=== PATIENT | male | born 1975 ===

== ENCOUNTER 2020-01-19 10:05 | Day surgery (SDC) | payer BC ==
[~2020-01-19] VITALS: Ht 180.3 cm; Wt 88.0 kg
--- NOTE | 2020-01-19 10:36 | NUR ---
01/19/20 1036 Juancho Morrell CALL LIGHT WITHIN REACH. PT STATES HE HAD BLACK COFFEE ABOUT 4OZ AROUND [address] COON AWARE, DR. JADE OK TO PROCEED WITH PROCEDURE
== END 2020-01-19 11:43 | disposition home or self-care (01) ==
LOC: ORSCSDS 10:05
PROVIDERS: Internal Medicine Gastroenterology
PROC: 06LY4CC Occlusion of Hemorrhoidal Plexus with Extraluminal Device, Percutaneous Endoscopic Approach (ICD-10-PCS; principal; 2020-01-19 11:15)
DX: K92.1 Melena (principal); K64.8 Other hemorrhoids; Z80.0 Family history of malignant neoplasm of digestive organs
CPT/HCPCS: J2704; J7120

== ENCOUNTER 2020-06-24 12:36 | Day surgery (SDC) | payer BC ==
[~2020-06-24] VITALS: Ht 175.3 cm; Wt 89.8 kg
== END 2020-06-24 14:45 | disposition home or self-care (01) ==
LOC: ORSCSDS 12:36
PROVIDERS: Internal Medicine Gastroenterology
PROC: 0DBK8ZX Excision of Ascending Colon, Via Natural or Artificial Opening Endoscopic, Diagnostic (ICD-10-PCS; principal; 2020-06-24 14:15)
DX: Z12.11 Encounter for screening for malignant neoplasm of colon (principal); D12.2 Benign neoplasm of ascending colon; K64.8 Other hemorrhoids; K64.4 Residual hemorrhoidal skin tags; Z80.0 Family history of malignant neoplasm of digestive organs
CPT/HCPCS: 88305; J2704; J7120

== ENCOUNTER 2025-02-20 17:37 | Observation (INO) | payer OTHER ==
[~2025-02-20] VITALS: Ht 180.3 cm; Wt 93.0 kg
[2025-02-20] MEDS ORDERED: Clindamycin 600mg in D5W 50 ML IV ONE (18:25)
[2025-02-20] MEDS ORDERED: CefTRIAXone Sodium 1,000 MG in NS 100 ML IV SCH (21:01)
[2025-02-20] MEDS ORDERED: MetroNIDAZOLE 500MG/NS 100 ml 100 ML IV SCH (22:00)
[2025-02-21] VITALS (16 sets, daily range): BP systolic 103–139; BP diastolic 52–82
[2025-02-21] MEDS ORDERED: MetroNIDAZOLE 500MG/NS 100 ml 100 ML IV SCH (01:15)
[2025-02-21 06:33] LABS: BASOPHILS ABSOLUTE AUTO 0.04 K/mm3 (0.00-0.23); BASOPHILS PERCENT AUTO 0 % (0-2); EOSINOPHILS ABSOLUTE AUTO 0.02 K/mm3 (0.00-0.68); EOSINOPHILS PERCENT AUTO 0 % (0-6); Hematocrit 37.6 % (37.0-53.0); Hemoglobin 12.2 g/dL (13.5-17.5); IMMATURE GRAN ABSOLUTE AUTO 0.03 K/mm3 (0.00-0.10); IMMATURE GRAN PERCENT AUTO 0 % (0-1); LYMPHOCYTES ABSOLUTE AUTO 1.15 K/mm3 (0.84-5.20); LYMPHOCYTES PERCENT AUTO 10 % (21-46); MONOCYTES ABSOLUTE AUTO 1.13 K/mm3 (0.16-1.47); MONOCYTES PERCENT AUTO 10 % (4-13); Mean Corpuscular HGB Conc 32.4 g/dL (31.5-36.5); Mean Corpuscular Volume 92 fL (80-100); NEUTROPHILS ABSOLUTE AUTO 8.94 K/mm3 (1.96-9.15); NEUTROPHILS PERCENT AUTO 79 % (41-73); NRBC ABSOLUTE 0.00 K/mm3 (0.00-0.02); NRBC Auto 0.0 /100 WBC (0.0-0.2); Platelet Count 366 K/mm3 (150-400); RDW Coefficient Variation 12.3 % (11.7-14.2); RDW Standard Deviation 41.5 fL (35.1-46.3)
[2025-02-21 06:53] LABS: Anion Gap 8.0 mmol/L (3-11); Blood Urea Nitrogen 10.0 mg/dL (8-24); CO2, Blood 26.0 mmol/L (21-32); Calcium, Blood 8.1 mg/dL (8.5-10.1); Chloride, Blood 103.0 mmol/L (98-108); Creatinine, Blood 1.01 mg/dL (0.60-1.20); Glucose, Blood 96.0 mg/dL (70-99); Potassium, Blood 4.0 mmol/L (3.5-5.5); Sodium, Blood 133.0 mmol/L (136-145)
[2025-02-21] MEDS ORDERED: Lactobacil 2-S.Thermo-Bifido 1 1 Cap PO SCH (09:00)
--- NOTE | 2025-02-21 12:35 | NUR ---
History, Chart, Medications and Allergies reviewed before start of procedure. Lungs clear T/O to Auscultation. Patient confirms NPO status and agrees with scheduled surgery. Pre-Op teaching done. Pt verbalizes understanding.
[2025-02-21] MEDS ORDERED: Bupivacaine 0.5% W/EPI 1:200000 SDV 30 ML Vial ONE (12:55)
[2025-02-21] MEDS ORDERED: FentaNYL Citrate 50 MCG/ML 2 ML Injection ONE ×2 (13:09→14:45)
[2025-02-21] MEDS ORDERED: Dexamethasone Sod Phos 10 MG/ML 1ML VIAL ONE (13:30)
[2025-02-21] MEDS ORDERED: Ondansetron HCl 2 MG / ML 2ML Vial ONE (13:45)
--- NOTE | 2025-02-21 13:46 | NUR ---
02/21/25 1346 Jaky Luna PATIENT IS ON SCHEDULED ANTIBIOTICS. NO ADDITIONAL PREOPERATIVE ANTIBIOTICS ORDERED.
[2025-02-21] MEDS ORDERED: Ketorolac Tromethamine 30mg Vial ONE (14:45)
--- NOTE | 2025-02-21 15:48 | NUR ---
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 PT TO UNIT AT 1525. A/O, VSS, SURGICAL SITE WNL.PT REPORTS MINIMAL PAIN. CALL LIGHT IN REACH. PT FAMILY AT BEDSIDE.
--- NOTE | 2025-02-21 18:10 | NUR ---
DISCHARGE EATING, DRINKING, VOIDING. PAIN WELL CONTROLLED. REQUESTING TO GO HOME. ALREADY HAS Rx FROM PHARMACY. DECLINES WC & AMBULATES OUT w/ .
== END 2025-02-21 18:10 | disposition home or self-care (01) ==
LOC: ER 17:37 → SURS 17:38 → ERHOLD 17:38 → ER 20:55 → SURS 02-21 15:18
PROVIDERS: Student in an Organized Health Care Education/Training Program; Surgery; ADMIT Student in an Organized Health Care Education/Training Program
PROC: 0D9Q0ZZ Drainage of Anus, Open Approach (ICD-10-PCS; principal; 2025-02-21 13:00)
DX: K61.0 Anal abscess (principal); K64.4 Residual hemorrhoidal skin tags; E87.1 Hypo-osmolality and hyponatremia; R50.9 Fever, unspecified; Z85.46 Personal history of malignant neoplasm of prostate; K62.89 Other specified diseases of anus and rectum; N15.1 Renal and perinephric abscess
CPT/HCPCS: 36415; 72193; 80048; 80053; 83605; 84153; 84154; 85025; 87040; 99284; A9270; J0696; J1100; J1885; J2405; J2704; J3010; J7120; Q9967

== ENCOUNTER → 2025-02-20 | Outpatient (CLI) | payer OTHER ==
[2025-02-20 15:10] LABS: BASOPHILS ABSOLUTE AUTO 0.03 K/mm3 (0.00-0.23); BASOPHILS PERCENT AUTO 0 % (0-2); EOSINOPHILS ABSOLUTE AUTO 0.01 K/mm3 (0.00-0.68); EOSINOPHILS PERCENT AUTO 0 % (0-6); Hematocrit 38.3 % (37.0-53.0); Hemoglobin 12.7 g/dL (13.5-17.5); IMMATURE GRAN ABSOLUTE AUTO 0.04 K/mm3 (0.00-0.10); IMMATURE GRAN PERCENT AUTO 0 % (0-1); LYMPHOCYTES ABSOLUTE AUTO 1.56 K/mm3 (0.84-5.20); LYMPHOCYTES PERCENT AUTO 13 % (21-46); MONOCYTES ABSOLUTE AUTO 0.84 K/mm3 (0.16-1.47); MONOCYTES PERCENT AUTO 7 % (4-13); Mean Corpuscular HGB Conc 33.2 g/dL (31.5-36.5); Mean Corpuscular Volume 90 fL (80-100); NEUTROPHILS ABSOLUTE AUTO 9.53 K/mm3 (1.96-9.15); NEUTROPHILS PERCENT AUTO 79 % (41-73); NRBC ABSOLUTE 0.00 K/mm3 (0.00-0.02); NRBC Auto 0.0 /100 WBC (0.0-0.2); Platelet Count 408 K/mm3 (150-400); RDW Coefficient Variation 12.4 % (11.7-14.2); RDW Standard Deviation 40.6 fL (35.1-46.3)
[2025-02-20 15:25] LABS: Alanine Aminotransfer (ALT/SGP 28.0 U/L (12-78); Albumin, Blood 3.4 g/dL (3.4-5.0); Albumin/Globulin Ratio 0.7 (0.8-1.8); Anion Gap 14.0 mmol/L (3-11); Aspartate Aminotrans (AST/SGOT 18.0 U/L (12-37); Bilirubin, Total 0.6 mg/dL (0.1-1.0); Blood Urea Nitrogen 12.0 mg/dL (8-24); CO2, Blood 26.0 mmol/L (21-32); Calcium, Blood 9.1 mg/dL (8.5-10.1); Chloride, Blood 97.0 mmol/L (98-108); Creatinine, Blood 0.97 mg/dL (0.60-1.20); Globulin, Blood 4.6 g/dL (2.2-4.0); Glucose, Blood 97.0 mg/dL (70-99); Potassium, Blood 4.0 mmol/L (3.5-5.5); Sodium, Blood 133.0 mmol/L (136-145); Total Protein, Blood 8.0 g/dL (6.4-8.2)
[2025-02-20 17:46] LABS: PSA, %Free 13.1 %; PSA, Free 0.107 ng/mL; Prostate Specific Antigen 0.816 ng/mL (0.000-4.000)
== END ==
LOC: LAB 15:06 → LAB SHORT 15:06
PROVIDERS: Physician Assistant
DX: R50.9 Fever, unspecified (principal); Z85.46 Personal history of malignant neoplasm of prostate
CPT/HCPCS: 80053; 83605; 84153; 84154; 85025; 87040

== ENCOUNTER 2025-05-16 07:11 | Day surgery (SDC) | payer OTHER ==
[~2025-05-16] VITALS: Ht 180.3 cm; Wt 92.1 kg
[2025-05-16 07:51] VITALS: BP 131/77
--- NOTE | 2025-05-16 08:04 | NUR ---
Ambulatory in Day Surgery History, Chart, Medications and Allergies reviewed before start of procedure. Pre-Op teaching done. Pt verbalizes understanding. Patient States Post-Procedure ride home has been arranged.
[2025-05-16] MEDS ORDERED: Bupivacaine 0.5% HCl 5 MG/ML 30MLVIAL ONE (08:34)
[2025-05-16] MEDS ORDERED: Midazolam HCl 1MG / ML 2ML Vial ONE (08:56)
[2025-05-16] MEDS ORDERED: FentaNYL Citrate 50 MCG/ML 2 ML Injection ONE ×2 (08:56→09:17)
[2025-05-16] MEDS ORDERED: Metoclopramide HCl 5MG / ML 2ML Vial ONE (08:59)
[2025-05-16] MEDS ORDERED: Ondansetron HCl 2 MG / ML 2ML Vial ONE (08:59)
[2025-05-16] MEDS ORDERED: Dexamethasone Sod Phos 10 MG/ML 1ML VIAL ONE (08:59)
[2025-05-16] MEDS ORDERED: Ketorolac Tromethamine 30mg Vial ONE (09:02)
[2025-05-16] MEDS ORDERED: Albuterol 2.5 MG/3 ML VIAL INH PRN (09:05)
[2025-05-16] MEDS ORDERED: HYDROmorphone HCl/Pf 1MG SYR IV PRN ×2 (09:05→09:10)
[2025-05-16] MEDS ORDERED: FentaNYL Citrate 50 MCG/ML 2 ML Injection IV PRN (09:05)
[2025-05-16] MEDS ORDERED: Ondansetron HCl 2 MG / ML 2ML Vial IV PRN (09:10)
[2025-05-16 09:40] VITALS: BP 127/100
[2025-05-16 09:45] VITALS: BP 100/63
[2025-05-16 09:50] VITALS: BP 102/60
[2025-05-16 09:55] VITALS: BP 111/67
[2025-05-16 10:12] VITALS: BP 120/78
--- NOTE | 2025-05-16 10:48 | NUR ---
Patient States Post-Procedure ride home has been arranged. Discharged via wheelchair to private car for ride home. Discharge instructions reviewed with patient. Patient verbalizes understanding. Copy given to patient to take home.
== END 2025-05-16 23:00 | disposition home or self-care (01) ==
LOC: ORSCMMR 07:11 → ORD 08:30 → ORSCMMR 23:00
PROVIDERS: Surgery
PROC: 0DBQ0ZZ Excision of Anus, Open Approach (ICD-10-PCS; principal; 2025-05-16 08:30)
PROC: 0D9R0ZZ Drainage of Anal Sphincter, Open Approach (ICD-10-PCS; principal; 2025-05-16 08:30)
DX: K60.30 Anal fistula, unspecified (principal)
CPT/HCPCS: J1100; J1885; J2250; J2405; J2704; J2765; J3010; J7120